=== PATIENT | female | born 1935 | race Caucasian/White ===

== ENCOUNTER 2017-03-27 22:51 | Emergency (ER) | payer MEDICARE, MEDICAID ==
[~2017-03-27] VITALS: Ht 157.5 cm; Wt 81.6 kg
[2017-03-27 23:30] VITALS: BP 160/81
[2017-03-27] MEDS ORDERED: Morphine Sulfate 4mg/ml Inj IVP ONE (23:45)
[2017-03-27 23:47] LABS: BASOPHILS % (AUTO) 0.6 % (0.0-2.0); EOSINOPHILS % (AUTO) 0.5 % (0.0-3.0); HEMATOCRIT 42.1 % (37.0-47.0); HEMOGLOBIN 13.7 G/DL (12.0-16.0); LYMPHOCYTES % (AUTO) 10.7 % (20.0-45.0); MEAN CORPUSCULAR VOLUME 91 FL (80-99); MONOCYTES % (AUTO) 4.9 % (1.0-10.0); NEUTROPHILS % (AUTO) 83.4 % (45.0-75.0); PLATELET COUNT 283 K/UL (150-450); RED BLOOD COUNT 4.64 M/UL (4.20-5.40); RED CELL DISTRIBUTION WIDTH 14.9 % (11.6-14.8); WHITE BLOOD COUNT 13.8 K/UL (4.8-10.8)
[2017-03-27 23:58] LABS: BILIRUBIN, URINE NEGATIVE (NEGATIVE); COLOR,URINE PALE YELLOW; GLUCOSE, URINE (UA) 2+ (NEGATIVE); KETONES,URINE 3+ (NEGATIVE); LEUKOCYTE ESTERASE ,URINE 1+ (NEGATIVE); NITRITE,URINE NEGATIVE (NEGATIVE); PH,URINE 5 (4.5-8.0); PROTEIN,URINE 2+ (NEGATIVE); UROBILINOGEN,URINE NORMAL MG/DL (0.0-1.0)
[2017-03-27 23:59] LABS: ANION GAP 8 mmol/L (5-15); BLOOD UREA NITROGEN 12 mg/dL (7-18); CALCIUM 9.7 MG/DL (8.5-10.1); CARBON DIOXIDE 27 MMOL/L (21-32); CHLORIDE 101 MMOL/L (98-107); CREATININE 0.8 MG/DL (0.55-1.30); POTASSIUM 3.8 MMOL/L (3.5-5.1); SODIUM 136 MMOL/L (136-145)
[2017-03-28 00:05] LABS: ALANINE AMINOTRANSFERASE 14 U/L (12-78); ALBUMIN 3.9 G/DL (3.4-5.0); ALKALINE PHOSPHATASE 56 U/L (46-116); ASPARTATE AMINO TRANSFERASE 13 U/L (15-37); BILIRUBIN,TOTAL 0.3 MG/DL (0.2-1.0)
[2017-03-28 00:13] LABS: APPEARANCE,URINE CLOUDY
[2017-03-28] MEDS ORDERED: Morphine Sulfate 4mg/ml Inj IVP ONE (01:15)
[2017-03-28] MEDS ORDERED: FLOMAX0.4 MG ORAL (02:21)
[2017-03-28] MEDS ORDERED: HYDROCODON-ACE1 EA15 ORAL (02:21)
--- NOTE | 2017-03-28 02:22 | Emergency Room Report ---
History of Present Illness General Chief Complaint: Abdominal Pain Source: Patient, Family Member Present Illness HPI Is an 81-year-old Citizen Of The [place] female with history diabetes high blood pressure. She presents with chief complaint of acute onset of left flank pain. Pain was 10 out of 10 patient is nausea vomiting. Described as sharp and radiating to groin. 2 days ago she noticed some hematuria. Saw urologist today and had normal ultrasound. Pain came on this evening. Allergies: Coded Allergies: No Known Allergies (Unverified , 03/27/17) Patient History Past Medical History: see triage record, old chart reviewed, DM, HTN Past Surgical History: other Pertinent Family History: none Social History: Denies: smoking Last Menstrual Period: NA Now: No Immunizations: other Reviewed Nursing Documentation: PMH: Agreed, PSxH: Agreed Nursing Documentation-PMH Hx Hypertension: Yes Hx Diabetes: Yes Review of Systems Eye: Denies: eye pain, blurred vision ENT: Denies: ear pain, nose congestion, throat swelling Respiratory: Denies: cough, shortness of breath Cardiovascular: Denies: chest pain, palpitations Gastrointestinal: Reports: abdominal pain, Denies: diarrhea, nausea, vomiting Genitourinary: Reports: hematuria Musculoskeletal: Denies: back pain, joint pain Skin: Denies: rash Neurological: Denies: headache, numbness Endocrine: Denies: increased thirst, increased urine Hematologic/Lymphatic: Denies: easy bruising All Other Systems: negative except mentioned in HPI Physical Exam Vital Signs Date Time Temp Pulse Resp B/P (MAP) Pulse Ox O2 Delivery O2 Flow Rate FiO2 03/27/17 23:11 98.1 69 20 195/76 98 Room Air vitals with high blood pressure Sp02 EP Interpretation: reviewed, normal General Appearance: well appearing, alert, moderate distress - From pain Head: normocephalic, atraumatic Eyes: bilateral eye PERRL, bilateral eye EOMI ENT: hearing grossly normal, normal pharynx Neck: full range of motion, supple, no meningismus Respiratory: chest non-tender, lungs clear, normal breath sounds Cardiovascular #1: regular rate, rhythm, no murmur Gastrointestinal: normal bowel sounds, non tender, no mass, no organomegaly, no bruit, non-distended Musculoskeletal: back normal, gait/station normal, normal range of motion Psychiatric: mood/affect normal Skin: warm/dry Medical Decision Making Diagnostic Impression: Primary Impression: Ureteral stone with hydronephrosis ER Course Patient presents with acute onset of flank pain. This is secondary to ureteral stone. Pain is well-controlled now. No infection. Blood pressure improved. We'll discharge home. CT/MRI/US Diagnostic Results CT/MRI/US Diagnostic Results : Imaging Test Ordered: CT abdomen and pelvis Impression 4 mm left UVJ stone with Hydronephrosis Last Vital Signs Date Time Temp Pulse Resp B/P (MAP) Pulse Ox O2 Delivery O2 Flow Rate FiO2 03/27/17 23:30 74 23 160/81 90 Room Air 03/27/17 23:11 98.1 Status: improved Disposition: HOME, SELF-CARE Condition: Stable Scripts Tamsulosin HCl (Flomax) 0.4 Mg Cap.er.24h 0.4 MG ORAL DAILY, #14 CAP Prov: JESSICA HIGGINS M.D. 03/28/17 Hydrocodone/Acetaminophen 5-325* (HYDROCODONE/ACETAMINOPHEN 5-325*) 1 Each Tablet 1 TAB ORAL Q6H Y for For Pain, #20 TAB 0 Refills Prov: JESSICA HIGGINS M.D. 03/28/17 Additional Instructions: Increase fluids. Followup with urologist within a week. Return for increasing pain, fever, or unable to urinate. JESSICA HIGGINS M.D. Mar 28, 2017 02:22
[2017-03-28] MEDS ORDERED: Norco 5mg/325mg tab ORAL ONE (02:45)
[2017-03-28 02:47] VITALS: BP 156/70
[2017-03-28 02:48] VITALS: BP 156/70
--- NOTE | 2017-03-28 12:41 | Diagnostic Imaging Report ---
Indication: Abdominal pain Technique: CT of the abdomen and pelvis utilizing automated exposure control without intravenous or oral contrast. CT dose: Total DLP 1039.9 mGycm; CTDI vol 18.6 mGy Comparison: None Findings: Lower lung atelectasis versus infiltrate versus edema. Rounded, approximately 8 mm nodules in the left upper lobe (series 5 image #31) as well as within the right lower lobe (series 5 image #33). Heart size within normal limits. No pericardial effusion. Coronary arterial calcification is noted. Gallbladder likely surgically absent. No biliary ductal dilatation. Noncontrast evaluation of the liver, spleen, adrenal glands and pancreas grossly unremarkable. There is moderate left-sided perinephric stranding and mild left-sided hydroureteronephrosis to the level of a 4 mm stone at the left ureterovesicular junction (series 3 image #149). No urinary tract stone noted on the right. 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 Bladder is decompressed, limiting its evaluation. Uterus appears atrophic. 2 ventral hernias, one containing fat and the other containing loops of bowel. There is also a periumbilical fat-containing hernia. There is no evidence of associated bowel obstruction. No focal inflammatory change noted within the hernia sac. No abnormal bowel wall thickening or perienteric inflammatory changes appreciated although evaluation is limited contrast. Atherosclerotic disease noted in a normal caliber abdominal aorta. Small retroperitoneal lymph nodes are seen, likely reactive in etiology. 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 Probable interbody hemangioma within the L4 vertebral body. There is age-indeterminate compression deformity of the L1 vertebral body. IMPRESSION: 4 mm calculus at the left ureterovesicular junction with mild left-sided hydroureteronephrosis and perinephric stranding. Ventral hernias containing fat and nonobstructed loops of bowel. Periumbilical fat-containing hernia. At least two approximately 8 mm lung nodules as detailed above. Follow-up chest CT within 3-6 months recommended. Age-indeterminate compression deformity of the L1 vertebral body. Evidence of transitional lumbosacral anatomy. Additional findings as above. This corresponds with the [facility] preliminary report. Pulmonary nodules were noted in the preliminary report. Recommendation of follow-up CT of the chest within 3-[address] JAMEHDOR of the ED approximately 12:26, 03/28/17. The CT scanner at [facility] is accredited by the [employer] and the scans are performed using protocols designed to limit radiation exposure to as low as reasonably achievable to attain images of sufficient resolution adequate for diagnostic evaluation.
== END 2017-03-28 02:53 | disposition home or self-care (01) ==
LOC: EMR 23:28
DX: N13.2 Hydronephrosis with renal and ureteral calculous obstruction (principal); K43.9 Ventral hernia without obstruction or gangrene; K42.9 Umbilical hernia without obstruction or gangrene
CPT/HCPCS: 36415; 74176; 80053; 81003; 83690; 85025; 96374; 96375; 96376; 99284; J2270; J2405

== ENCOUNTER 2017-08-25 12:45 | Emergency (ER) | payer MEDICARE, MEDICAID ==
[~2017-08-25] VITALS: Ht 154.9 cm; Wt 79.4 kg
[~2017-08-25 12:45] MED LIST: FLOMAX0.4 MG ORAL; HYDROCODON-ACE1 EA15 ORAL
[2017-08-25 13:10] VITALS: BP 163/85
[2017-08-25] MEDS ORDERED: Ketorolac 30mg Inj IV ONE (13:15)
[2017-08-25] MEDS ORDERED: Morphine Sulfate 4mg/ml Inj IVP ONE (13:15)
[2017-08-25 13:49] LABS: BASOPHILS % (AUTO) 0.8 % (0.0-2.0); EOSINOPHILS % (AUTO) 0.5 % (0.0-3.0); HEMATOCRIT 42.4 % (37.0-47.0); HEMOGLOBIN 13.4 G/DL (12.0-16.0); LYMPHOCYTES % (AUTO) 13.9 % (20.0-45.0); MEAN CORPUSCULAR VOLUME 89 FL (80-99); MONOCYTES % (AUTO) 5.7 % (1.0-10.0); NEUTROPHILS % (AUTO) 79.1 % (45.0-75.0); PLATELET COUNT 281 K/UL (150-450); RED BLOOD COUNT 4.76 M/UL (4.20-5.40); RED CELL DISTRIBUTION WIDTH 14.6 % (11.6-14.8); WHITE BLOOD COUNT 10.8 K/UL (4.8-10.8)
--- NOTE | 2017-08-25 13:50 | Emergency Room Report ---
History of Present Illness General Chief Complaint: Back Pain-No Injury Source: Patient, Family Member Present Illness HPI Patient presents with left flank pain. She was seen here 4 months ago and presumably passed a renal stone. She was seen by her urologist 3 days ago and had blood in her urine - told "no infection". She hasn't any fevers or chills. She's nauseated and having difficulty keeping down anything. The pain is significant. She took a hydrocodone before coming in and the pain is somewhat better. It was 9/10 at home and now it's 8/10 - L flank, radiates to groin. She has had flomax in the past, none taken recently. This is the CT 03/27/17: IMPRESSION: 4 mm calculus at the left ureterovesicular junction with mild left-sided hydroureteronephrosis and perinephric stranding. Ventral hernias containing fat and nonobstructed loops of bowel. Periumbilical fat-containing hernia. At least two approximately 8 mm lung nodules as detailed above. Follow-up chest CT within 3-6 months recommended. Age-indeterminate compression deformity of the L1 vertebral body. Evidence of transitional lumbosacral anatomy. No chest pain, dyspnea, headache. No extremity pain. Anxious as this problem has been recurrent. Allergies: Coded Allergies: No Known Allergies (Unverified , 03/27/17) Patient History Past Medical History: see triage record Social History: Denies: smoking, alcohol use Social History Narrative from home Last Menstrual Period: NA Reviewed Nursing Documentation: PMH: Agreed; PSxH: Agreed Nursing Documentation-PMH Hx Hypertension: Yes Hx Diabetes: Yes Review of Systems All Other Systems: negative except mentioned in HPI Physical Exam Vital Signs Date Time Temp Pulse Resp B/P (MAP) Pulse Ox O2 Delivery O2 Flow Rate FiO2 08/25/17 13:03 98.3 84 16 163/85 92 Room Air 98.2 Sp02 EP Interpretation: reviewed, normal General Appearance: well appearing, no apparent distress, GCS 15, other - frail Head: normocephalic Eyes: bilateral eye normal inspection, bilateral eye PERRL ENT: moist mucus membranes Neck: supple Respiratory: lungs clear, normal breath sounds Cardiovascular #1: regular rate, rhythm Cardiovascular #2: 2+ radial (R) Gastrointestinal: normal inspection, normal bowel sounds, non tender, no mass, non-distended Genitourinary: CVA tenderness (L) - reported Musculoskeletal: back normal, gait/station normal, normal range of motion Neurologic: alert, oriented x3, grossly normal Psychiatric: anxious Skin: normal inspection, warm/dry Medical Decision Making Diagnostic Impression: Primary Impression: Left flank pain Additional Impressions: Ureterolithiasis UTI (urinary tract infection) Qualified Codes: N30.00 - Acute cystitis without hematuria ER Course Patient presents with flank pain similar to when she had acute renal stone before. She was told she had hematuria last week. Differential includes pyelonephritis, renal stone, he diverticulitis amongst others. At this point we will try not to repeat a CT scan as well as just done in March. Ultrasound view ordered and also IV hydration and analgesia. After meds. Pain decreased to 3/10. Flomax given. Labs remarkable for some pyuria. Antibiotics begun. Ultrasound without obstruction. States pain is minimal. Discussed findings. Patient stable for outpatient observation and treatment. Laboratory Tests Test 08/25/17 13:29 08/25/17 14:16 White Blood Count 10.8 K/UL (4.8-10.8) Red Blood Count 4.76 M/UL (4.20-5.40) Hemoglobin 13.4 G/DL (12.0-16.0) Hematocrit 42.4 % (37.0-47.0) Mean Corpuscular Volume 89 FL (80-99) Mean Corpuscular Hemoglobin 28.2 PG (27.0-31.0) Mean Corpuscular Hemoglobin Concent 31.6 G/DL (32.0-36.0) L Red Cell Distribution Width 14.6 % (11.6-14.8) Platelet Count 281 K/UL (150-450) Mean Platelet Volume 8.5 FL (6.5-10.1) Neutrophils (%) (Auto) 79.1 % (45.0-75.0) H Lymphocytes (%) (Auto) 13.9 % (20.0-45.0) L Monocytes (%) (Auto) 5.7 % (1.0-10.0) Eosinophils (%) (Auto) 0.5 % (0.0-3.0) Basophils (%) (Auto) 0.8 % (0.0-2.0) Prothrombin Time 12.0 SEC (9.30-11.50) H Prothrombin Time INR 1.1 (0.9-1.1) PTT 27 SEC (23-33) Sodium Level 134 MMOL/L (136-145) L Potassium Level 3.8 MMOL/L (3.5-5.1) Chloride Level 104 MMOL/L (98-107) Carbon Dioxide Level 20 MMOL/L (21-32) L Anion Gap 10 mmol/L (5-15) Blood Urea Nitrogen 14 mg/dL (7-18) Creatinine 0.7 MG/DL (0.55-1.30) Estimate Glomerular Filtration Rate mL/min (>60) Glucose Level 152 MG/DL (74-106) H Calcium Level 9.2 MG/DL (8.5-10.1) Total Bilirubin 0.4 MG/DL (0.2-1.0) Aspartate Amino Transferase (AST) 20 U/L (15-37) Alanine Aminotransferase (ALT) 18 U/L (12-78) Alkaline Phosphatase 51 U/L (46-116) Total Protein 7.5 G/DL (6.4-8.2) Albumin 3.6 G/DL (3.4-5.0) Globulin 3.9 g/dL Albumin/Globulin Ratio 0.9 (1.0-2.7) L Lipase 118 U/L (73-393) Urine Color Pale yellow Urine Appearance Clear Urine pH 5 (4.5-8.0) Urine Specific [place] 1.005 (1.005-1.035) Urine Protein Negative (NEGATIVE) Urine Glucose (UA) Negative (NEGATIVE) Urine Ketones Negative (NEGATIVE) Urine Occult Blood 3+ (NEGATIVE) H Urine Nitrite Negative (NEGATIVE) Urine Bilirubin Negative (NEGATIVE) Urine Urobilinogen Normal MG/DL (0.0-1.0) Urine Leukocyte Esterase 2+ (NEGATIVE) H Urine RBC 2-4 /HPF (0 - 2) H Urine WBC 5-10 /HPF (0 - 2) H Urine Squamous Epithelial Cells Occasional /LPF Urine Bacteria Occasional /HPF (NONE) EKG Diagnostic Results Rate: normal Rhythm: NSR ST Segments: no acute changes Rhythm Strip Diag. Results EP Interpretation: yes Rhythm: NSR, no PVC's, no ectopy CT/MRI/US Diagnostic Results CT/MRI/US Diagnostic Results : Imaging Test Ordered: u/s renal Impression no hydro Last Vital Signs Date Time Temp Pulse Resp B/P (MAP) Pulse Ox O2 Delivery O2 Flow Rate FiO2 08/25/17 16:46 98.3 80 16 163/85 92 Room Air 208.9 Status: improved Scripts Ondansetron Odt* (ZOFRAN ODT*) 4 Mg Tab.rapdis 4 MG BC EVERY 8 HOURS, #6 TAB 1 Refill Prov: Tye Thompson M.D. 08/25/17 Hydrocodone Bit/Acetaminophen 5-325* (NORCO 5-325*) 1 Each Tablet 1 TAB ORAL Q6H PRN for For Pain, #10 TAB 0 Refills Prov: Tye Thompson M.D. 08/25/17 Tamsulosin HCl (Flomax) 0.4 Mg Cap.er.24h 0.4 MG ORAL DAILY, #10 CAP 1 Refill Prov: Tye Thompson M.D. 08/25/17 Tye Thompson M.D. Aug 25, 2017 13:50
[2017-08-25 14:05] LABS: INR 1.1 (0.9-1.1)
[2017-08-25 14:11] LABS: ANION GAP 10 mmol/L (5-15); BLOOD UREA NITROGEN 14 mg/dL (7-18); CALCIUM 9.2 MG/DL (8.5-10.1); CARBON DIOXIDE 20 MMOL/L (21-32); CHLORIDE 104 MMOL/L (98-107); CREATININE 0.7 MG/DL (0.55-1.30); POTASSIUM 3.8 MMOL/L (3.5-5.1); SODIUM 134 MMOL/L (136-145)
[2017-08-25 14:15] LABS: ALANINE AMINOTRANSFERASE 18 U/L (12-78); ALBUMIN 3.6 G/DL (3.4-5.0); ALBUMIN/GLOBULIN RATIO 0.9 (1.0-2.7); ALKALINE PHOSPHATASE 51 U/L (46-116); ASPARTATE AMINO TRANSFERASE 20 U/L (15-37); BILIRUBIN,TOTAL 0.4 MG/DL (0.2-1.0)
[2017-08-25 14:36] LABS: APPEARANCE,URINE CLEAR; BILIRUBIN, URINE NEGATIVE (NEGATIVE); COLOR,URINE PALE YELLOW; GLUCOSE, URINE (UA) NEGATIVE (NEGATIVE); KETONES,URINE NEGATIVE (NEGATIVE); LEUKOCYTE ESTERASE ,URINE 2+ (NEGATIVE); NITRITE,URINE NEGATIVE (NEGATIVE); PH,URINE 5 (4.5-8.0); PROTEIN,URINE NEGATIVE (NEGATIVE); UROBILINOGEN,URINE NORMAL MG/DL (0.0-1.0)
[2017-08-25] MEDS ORDERED: Tamsulosin 0.4mg cap ORAL ONE (15:50)
[2017-08-25] MEDS ORDERED: ONDANSETRON ODT4 MG BC (16:28)
[2017-08-25] MEDS ORDERED: NORCO 5-325 TA1 EACH ORAL (16:28)
[2017-08-25] MEDS ORDERED: FLOMAX0.4 MG ORAL (16:28)
[2017-08-25 16:46] VITALS: BP 163/85
[2017-08-25] MEDS ORDERED: Tamsulosin 0.4mg cap ORAL SCH (21:00)
--- NOTE | 2017-08-26 14:10 | Diagnostic Imaging Report ---
Indication:Elevated Bun and Creatinine. Technique: Grayscale and duplex Doppler imaging of the kidneys performed. Comparison: None Findings: The size, contour, and echogenicity of both kidneys are within normal limits. There is no hydronephrosis. The IVC and urinary bladder are unremarkable. Liver is echogenic. The right kidney is 12 cm. Left kidney is 12.7 cm. IMPRESSION: No acute findings.
== END 2017-08-25 16:47 | disposition home or self-care (01) ==
LOC: EMR 16:30
DX: N13.2 Hydronephrosis with renal and ureteral calculous obstruction (principal); N30.00 Acute cystitis without hematuria; R10.9 Unspecified abdominal pain; I10 Essential (primary) hypertension; E11.9 Type 2 diabetes mellitus without complications; K43.9 Ventral hernia without obstruction or gangrene; K42.9 Umbilical hernia without obstruction or gangrene
CPT/HCPCS: 36415; 76770; 80053; 81003; 83690; 85025; 85610; 85730; 93005; 99284; J1885; J2270; J2405